=== PATIENT | male | born 1955 | race Caucasian/White ===

== ENCOUNTER 2020-01-07 09:47 | Emergency (ER) | payer BC ==
[2020-01-07] MEDS ORDERED: Ondansetron PF 4 MG/2 ML Vial ONE (10:19)
[2020-01-07] MEDS ORDERED: Morphine 4 MG/ML VIAL ONE ×2 (10:34→10:58)
[2020-01-07] MEDS ORDERED: Ketorolac Tromethamine 30 MG/ML VIAL ONE (10:34)
[2020-01-07] MEDS ORDERED: Promethazine HCl 25 MG/ML VIAL ONE (11:02)
[2020-01-07 11:53] LABS: Hemoglobin 15.5 g/dL (14.0-18.0); Mean Corpuscular HGB CONC 35.1 g/dL (32.0-36.0); Mean Corpuscular Volume 85.5 fL (78.0-98.0); Platelet Count 228 thou/uL (130-400); RBC Distribution Width 13.1 % (11.5-14.5); Red Blood Cell (RBC) Count 5.17 mill/uL (4.70-6.10); Reflex for Review?? YES; White Blood Cell (WBC) Count 46.1 thou/uL (4.8-10.8)
[2020-01-07 11:59] LABS: ALT (SGPT) 27 U/L (8-55); AST (SGOT) 30 U/L (5-34); Albumin 4.8 g/dL (3.4-4.8); Alkaline Phosphatase 136 U/L (40-110); Anion Gap 18 mmol/L (10-20); BUN (Urea Nitrogen) 17 mg/dL (8.4-25.7); Bilirubin, Total 0.8 mg/dL (0.2-1.2); Calc. Creatinine Clearance 0 mL/min (70-130); Calcium 9.6 mg/dL (7.8-10.44); Carbon Dioxide 21 mmol/L (23-31); Chloride 106 mmol/L (98-107); Estimated GFR-MDRD 54; Globulin 3.1 g/dL (2.4-3.5); Glucose 173 mg/dL (80-115); Potassium 3.9 mmol/L (3.5-5.1); Protein, Total 7.9 g/dL (5.8-8.1); Sodium 141 mmol/L (136-145)
--- NOTE | 2020-01-07 12:04 | CT ---
Exam: Abdomen CT without contrast Pelvic CT without contrast HISTORY: Abdominal pain. Pale and diaphoretic on arrival. COMPARISON: 03/10/2019. FINDINGS: Abdomen CT: Lung bases:Chronic changes. Calcified granuloma left lower lobe. Heart size: Normal heart size. No significant pericardial effusion. Aorta: Stable postoperative changes in the periaortic and aortocaval region. No obvious periaortic fa t stranding, aneurysm or retroperitoneal lymphadenopathy. Solid organs: Limited evaluation by the lack of IV contrast. Grossly no solid organ abnormality. Lymph nodes: No gastrohepatic, retrocrural or periportal lymphadenopathy. Gallbladder: Unremarkable. Mesentery: There is stranding of the central abdominal mesentery with mildly prominent mesenteric lym ph nodes. Findings are similar to the previous examination. The possibility of mesenteric lymphadenitis cannot be entirely excluded. Kidneys: Bilaterally, no hydronephrosis, nephrolithiasis or perinephric fat stranding. Bilateral uret ers have a normal caliber. No hydroureter, periureteral fat stranding or ureterolithiasis. Stable exophytic cyst emanating from the right renal cortex, measuring 8.9 x 8.5 cm. Alimentary canal: Limited evaluation by the lack of oral contrast. Small diverticulum in the second p ortion of the duodenum without inflammatory change is noted. Normal caliber small bowel loops. Normal ileocecal junction. Normal caliber appendix. Decompressed colon. Diverticula. No evidence of d iverticulitis. CT PELVIS: No mass, adenopathy, free air or free fluid. Bilateral inguinal hernias containing small amounts of mesenteric fat. Urinary bladder: Calcification in the urinary bladder, measures 0.3 cm. Osseous structures: No lytic or blastic lesions IMPRESSION: 1. No acute abnormality in the abdomen or pelvis. 2. Redemonstration of mild stranding of the abdominal mesentery with upper normal lymph nodes. The po ssibility of mesenteric lymphadenitis cannot be entirely excluded. Transcribed Date/Time: 01/07/2020 12:23 PM
[2020-01-07 12:07] LABS: Lymphocytes 77 % (21-51); MDiff Complete? YES; Monocytes 3 % (0-10); Neutrophil 20 % (42-75); Platelet Morphology Comment Appears Adequate; RBC Morphology Normal
[2020-01-07 14:39] LABS: Bacteria/HPF None Seen HPF (None Seen); Bilirubin Negative (Negative); Blood, Urine 3+ (Negative); Clarity Clear (Clear); Glucose, Urine (Dipstick) Normal (Negative); Ketone, Urine 10 mg/dL (Negative); Leukocyte Negative Leu/uL (Negative); Mucous/LPF 1+ LPF (<2+); Nitrite Negative (Negative); Protein, Urine (Dipstick) 10 mg/dL (Neg-Trace); RBC/HPF Greater than 50 HPF (0-3); Specific Gravity, Urine 1.023 (1.002-1.036); Squamous Epithelial 0-3 HPF (0-3); Urobilinogen Normal mg/dL (Less than 2); WBC/HPF 0-3 HPF (0-3); pH, Urine 5.5 (5.0-9.0)
== END 2020-01-07 15:09 | disposition home or self-care (01) ==
LOC: ERS 09:47
DX: N21.0 Calculus in bladder (principal); N20.1 Calculus of ureter; D72.829 Elevated white blood cell count, unspecified
CPT/HCPCS: 36415; 74176; 80053; 81003; 81015; 85025; 85060; 88184; 96365; 96375; J1885; J2270; J2405; J2550

== ENCOUNTER 2020-05-17 12:05 | Outpatient (CLI) | payer BC ==
--- NOTE | 2020-05-17 12:32 | RAD ---
EXAM: Chest 2 views: HISTORY: Pneumonia COMPARISON: 01/05/2013 FINDINGS: There is a normal-sized cardiomediastinal silhouette. Increased interstitial lung markings are prese nt. There is no evidence of consolidation, mass, or pleural effusion. Degenerative changes are seen in the spine. Surgical clips are seen near the gastroesophageal junction. IMPRESSION: No evidence of acute cardiopulmonary disease
== END 2020-05-17 12:06 | disposition home or self-care (01) ==
LOC: BICRAD 12:05
PROVIDERS: ATTEND Family Medicine
DX: J18.9 Pneumonia, unspecified organism (principal)
CPT/HCPCS: 71046

== ENCOUNTER 2022-05-21 08:13 | Outpatient (CLI) | payer BC ==
[2022-05-21] MEDS ORDERED: Iopamidol 370 76% 100 ML VIAL ONE (08:36)
== END 2022-05-21 08:14 | disposition home or self-care (01) ==
LOC: CT 08:13
PROVIDERS: ATTEND Internal Medicine Hematology & Oncology
DX: C91.10 Chronic lymphocytic leukemia of B-cell type not having achieved remission (principal); R91.8 Other nonspecific abnormal finding of lung field; N28.1 Cyst of kidney, acquired
CPT/HCPCS: 71260; 74177; 82565; Q9967